=== PATIENT | female | born 1930 | race Caucasian/White ===

== ENCOUNTER 2017-09-04 19:08 | Inpatient (IN) | payer MEDICARE, BC, MEDICAID ==
[~2017-09-04] VITALS: Ht 152.4 cm; Wt 44.0 kg
--- NOTE | ~2017-09-04 | PROC ---
[address] [address] PROCEDURE REPORT Name: MARCELINO TIPTON Room: [address] IN ..#: [id number] Admission: 09/04/17 Attend Phys: Ana York Discharge: Date of : 34 Report #: [id number] THIS REPORT FOR: //name// For GI report, please see the Provation report in Perceptive 7 content. By: [facility]3Medical Records Staff [facility] /RAMY
[~2017-09-04 19:08] MED LIST: ACETAMINOPHEN-1 EAC1 PO; ACIDOPHILUS1 EAC4 PO; ALL DAY ALLERGY10 M3 PO; ALL DAY ALLERGY10 MG PO; ANTI-ITCH28.4 GM TP; ARTIFICIAL TEA1 EACH OP; ASPIR 8181 MG PO; ATIVAN0.5 MG PO; AZITHROMYCIN 2250 MG PO; BUSPIRONE HCL10 MG PO; CAL-GEST200 MG PO; CALCIUM 600 +1 EA10 PO; CALCIUM 600 +1 EAC1 PO; CALCIUM500 M1 PO; CARAFATE 11 GM/10 M1 PO; CEPASTAT CHERR18 TA2 PO; COLACE100 MG PO; CRANBERRY450 M1 PO; GABAPENTIN 100100 MG PO; HYDROXYZINE HCL25 M1 PO; IBUPROFEN 400400 M2 PO; LEXAPRO 10 MG T10 M1 PO; LIPITOR10 MG PO; LISINOPRIL2.5 MG PO; LOPERAMIDE 2 MG2 M1 PO; LOPERAMIDE2 MG PO; MACROBID 100 M100 M1 PO; MACROBID 100 M100 M2 PO; MIRALAX17 GM PO; MIRALAX255 GM PO; MULTIVITAMINS1 EAC7 PO; OMEPRAZOLE40 MG PO; PANTOPRAZOLE SO40 M1 PO; PATANOL5 ML OPHTHALMIC; PEPCID20 MG PO; PHENERGAN 25 MG25 M1 PO; PRAVACHOL20 MG PO; PREDNISONE 5 MG5 MG PO; PROBIOTIC1 EAC1 PO; REMERON15 M1 PO; REMERON15 MG PO; ROBITUSSIN100 MG/53 PO; THERAGRAN-M PR1 EAC1 PO; TRANSDERM-SCO1 PATC1 TRANSDERM; TYLENOL325 MG PO; ULTRAM 50MG TAB50 MG PO; VALACYCLOVIR1000 MG PO; VENTOLIN HFA 1818 GM INH; VISTARIL 25 MG25 M1 PO; VOLTAREN GEL 1100 G1 TOP; VOLTAREN GEL 1100 G2 TOP; [UNRECOGNIZED DRUG - OTHER] TP
[2017-09-04 19:10] VITALS: BP 210/111
--- NOTE | 2017-09-04 19:22 | NUR ---
pt's purse and glasses by her side. pt has asked numerous times for her purse. i have set it in her hands and still she asks for it.
[2017-09-04] MEDS ORDERED: CELEXA10 MG PO (19:39)
[2017-09-04] MEDS ORDERED: ATIVAN0.5 MG PO (19:40)
[2017-09-04] MEDS ORDERED: ANTIFUNGAL TOP (19:41)
[2017-09-04 19:55] LABS: ABSOLUTE EOSINOPHILS 0.1 thou/uL (0.0-0.7); ABSOLUTE LYMPHOCYTES 1.6 thou/uL (0.8-5.3); ABSOLUTE MONOCYTES 0.6 thou/uL (0.0-1.2); ABSOLUTE NEUTROPHILS 10.7 thou/uL (1.6-8.1); BASOPHILS 0.3 %; EOSINOPHILS 0.9 %; HEMOGLOBIN 12.2 gm/dL (12.0-15.0); MCH 29.8 pg (26.0-34.0); MCHC 32.9 g/dL (28.0-37.0); MCV 90.8 fL (80.0-100.0); MONOCYTES 4.6 %; MPV 7.2 fl. (7.2-11.1); NUCLEATED RBCS 0 /100WBC; PLATELET COUNT* 371 thou/uL (150-400); POLYS 82.2 %; RBC 4.07 mil/uL (4.20-5.00); RDW-CV 13.2 % (10.5-14.5)
[2017-09-04 20:13] LABS: ANION GAP 9 mmol/L (7-16); BUN 22 mg/dL (7-18); CALCIUM 9.4 mg/dL (8.5-10.1); CHLORIDE 104 mmol/L (98-107); CO2 27 mmol/L (21-32); GLUCOSE 107 mg/dL (70-99); POTASSIUM 3.9 mmol/L (3.5-5.1); SODIUM 140 mmol/L (136-145)
[2017-09-04 20:21] LABS: ALBUMIN 3.4 g/dL (3.4-5.0); ALKALINE PHOSPHATASE 98 U/L (46-116); LIPASE 196 U/L (73-393); SGOT 19 U/L (15-37); SGPT 20 U/L (30-65); TOTAL BILIRUBIN 0.6 mg/dL (<0.1-1.0); TOTAL PROTEIN 7.2 g/dL (6.4-8.2); TROPONIN-I LEVEL <0.06 ng/mL (<0.06)
[2017-09-04 20:24] LABS: URINE BILIRUBIN NEGATIVE (Negative); URINE BLOOD TRACE (Negative); URINE CLARITY CLEAR; URINE COLOR YELLOW; URINE GLUCOSE-RANDOM NEGATIVE (Negative); URINE KETONES NEGATIVE (Negative); URINE LEUKOCYTES-REFLEX 1+ (Negative); URINE NITRITE-REFLEX NEGATIVE (Negative); URINE PROTEIN NEGATIVE (Negative); URINE UROBILINOGEN 0.2 E.U./dl (0.2-1.0)
[2017-09-04 20:50] LABS: CASTS None Seen /LPF (None Seen); CRYSTALS None Seen /LPF (None Seen); MUCUS None Seen strn/LPF (None Seen); SQUAMOUS 4-10 Moderate /LPF (0-3); URINE WBC-REFLEX >25 Many /HPF (0-5)
[2017-09-04 20:51] LABS: BACTERIA-REFLEX 1-9 Few /HPF (None Seen); URINE RBC 0-2 Rare /HPF (0-2); WBC CLUMPS Few (None Seen)
[2017-09-04] MEDS ORDERED: NORCO 5-325 TA1 EACH PO (21:12)
--- NOTE | 2017-09-04 21:38 | NUR ---
TALKED WITH ARUNA EPPS AT [facility] AND INFORMED HER THAT PT WILL BE RETURNING AND THAT THEY WILL NEED TO CALL DR TEIXEIRA'S OFFICE TOMORROW TO SCHEDULE PROCEDURE FOR SUNDAY. SHE IS GOING TO CALL PT'S DAUGHTER.
--- NOTE | 2017-09-04 22:49 | NUR ---
TRANSFER CANCELLED. PT TO BE ADMITTED. PT UNABLE TO STAND WITH ASSISSTANCE. SUPRIYA AT [facility] NOTIFIED. PT'S DAUGHTER NEVER RETURNED CALLS AT THIS TIME
[2017-09-04 23:23] VITALS: BP 154/67
[2017-09-04 23:30] VITALS: BP 152/58
--- NOTE | 2017-09-05 01:39 | NUR ---
ASSUMED CARE OF PT AT 2330. PT IS ALERT AND ORIENTED. VSS. PERRLA. NO COMPLAINTS OF PAIN. PT IS IN SINUS TACHYCARDIA ON THE TELEMETRY. PT IS RESTING COMFORTABLY IN BED. RESPIRATIONS ARE EVEN AND NONLABORED. WILL CONTINUE TO MONITOR PT.
[2017-09-05 08:17] LABS: ABSOLUTE BASOPHILS 0.1 thou/uL (0.0-0.2); ABSOLUTE LYMPHOCYTES 1.1 thou/uL (0.8-5.3); ABSOLUTE MONOCYTES 0.5 thou/uL (0.0-1.2); ABSOLUTE NEUTROPHILS 7.6 thou/uL (1.6-8.1); EOSINOPHILS 0.5 %; HEMATOCRIT 35.2 % (37.0-47.0); HEMOGLOBIN 11.8 gm/dL (12.0-15.0); LYMPHOCYTES 11.5 %; MCH 30.3 pg (26.0-34.0); MCHC 33.5 g/dL (28.0-37.0); MCV 90.3 fL (80.0-100.0); MONOCYTES 5.6 %; MPV 7.5 fl. (7.2-11.1); NUCLEATED RBCS 0 /100WBC; PLATELET COUNT* 362 thou/uL (150-400); POLYS 81.4 %; RDW-CV 13.1 % (10.5-14.5); WBC 9.4 thou/uL (4.0-11.0)
[2017-09-05 08:25] LABS: CALCIUM 8.1 mg/dL (8.5-10.1); CREATININE 0.9 mg/dL (0.6-1.3); POTASSIUM 3.7 mmol/L (3.5-5.1)
[2017-09-05 08:30] VITALS: BP 172/84
[2017-09-05 08:36] LABS: ALBUMIN 2.9 g/dL (3.4-5.0); MAGNESIUM 1.3 mg/dL (1.8-2.4); TOTAL BILIRUBIN 0.7 mg/dL (<0.1-1.0); TOTAL PROTEIN 6.6 g/dL (6.4-8.2)
[2017-09-05] MEDS ORDERED: ULTRAM 50MG TAB50 MG PO (10:33)
[2017-09-05] MEDS ORDERED: PROTONIX40 M1 PO (10:34)
[2017-09-05] MEDS ORDERED: VOLTAREN GEL 1100 G2 TOP (10:35)
[2017-09-05] MEDS ORDERED: REFRESH CELLUVI1 APP OPHTHALMIC (10:36)
[2017-09-05] MEDS ORDERED: NYAMYC15 GM TOP (10:37)
[2017-09-05] MEDS ORDERED: COMPOUND TOP (10:39)
--- NOTE | 2017-09-05 11:00 | NUR ---
TEXT PAGED DR. SPICER TO INQUIRE ABOUT EGD PROCEDURE SCHEDULED FOR SUNDAY. DR. SPICER STATES THAT HE IS TREATING PT FOR UTI. GI NOT CONSULTED AT THIS TIME. CONTACTED GI OFFICE TO VERIFY IF PT HAD SCHEDULED OUTPATIENT EGD D/T RECEIVING THIS INFORMATION IN NURSING REPORT THIS A.M. GI OFFICE STAFF STATE PT DOES NOT HAVE A PROCEDURE SCHEDULED OUTPATIENT BUT THAT SHE HAD AN EGD IN JUNE AND NO INDICATION OF A REPEAT STUDY IN PHYSICIAN NOTES.
[2017-09-05 12:13] VITALS: BP 157/71
--- NOTE | 2017-09-05 14:29 | NUR ---
WOUND CARE NOTE: CONSULT RECEIVED FOR PRESSURE ULCER TO BOTTOM. PATIENT PRESENTS WITH A HEALING STAGE 2 OR 3 PRESSURE ULCER TO HER SACRAL AREA. SMALL OPENING APPROXIMATELY 0.2X0.2X0.2 WITH A MOIST, RED WOUND BED. SHAKEEL-WOUND WITH NEW EPITHELIUM AND SHAKEEL-WOUND CALLOUS. RECOMMEND TURN Q2 HOURS, [id number] BARRIER OINTMENT BID AND PRN. LIMIT LAYERS OF LINEN UNDER PATIENT LIMIT HOB <30 DEGREES
[2017-09-05 15:44] VITALS: BP 160/89
--- NOTE | 2017-09-05 15:56 | NUR ---
CM ASSESSEMENT: Pt is confused, asking the same questions over and over. CM left for Pt's dtr. CM spoke with Valentina at [facility] and confirmed that Pt is a LTC resident there and that she can return. Pt is w[place] bound, staff assist with ADLs. Waiting for dtr to call back to confirm return to [facility] at mt. Following.
--- NOTE | 2017-09-05 16:00 | NUR ---
PT CALLS OUT CONTINUOUSLY FOR HELP. NURSING STAFF ASSISTS TO BSC, PT DOES NOT ALWAYS NEED TO VOID. PT HAS HAD ADEQUATE OUTPUT WITH SOME INCONTINENT EPISODES AND SOME ABILITY TO VOID IN BSC. PRN MEDICATION GIVEN FOR ANXIETY PT FACIAL EXPRESSION IS WORRIED AND STATES SHE DOES NOT KNOW IF HER CHILDREN ARE OK. INSISTS ON CALLING THEM. REACHED SON WHO VISITED WITH PT. PT APPEARED RELIEVED BUT CONTINUED TO EXPRESS ANXIETY. THERAPEUTIC COMMUNICATION TECHNIQUE: LISTENING, PRESENCE.
--- NOTE | 2017-09-05 16:17 | EKG ---
[place] [address] ELECTROCARDIOGRAM REPORT Name: MARCELINO TIPTON Room: [address] IN [facility]#: [id number] Admission: 09/04/17 Attend Phys: Ana York Discharge: Date of : 34 Report #: [id number] THIS REPORT FOR: //name// [facility] ED Test Date: 2017-09-04 Test Time: 20:03:08 Pat Name: MARCELINO TIPTON Department: Room: [facility] Gender: F Group Director: MICHAEL : [id number] Requested By: Laura Gandara Order Number: [id number] MD: Carroll Manuel Measurements Intervals [place] Rate: 103 P: 75 WA: 171 QRS: -37 QRSD: 122 T: 47 QT: 367 QTc: 481 Interpretive Statements Sinus tachycardia Ventricular premature complex Right bundle branch block Left ventricular hypertrophy Compared to ECG 05/07/2017 18:26:41 Ventricular premature complex(es) now present Left ventricular hypertrophy now present ST (T wave) deviation now present Electronically Signed On 09-05-2017 16:17:21 ACID OPERATOR by Carroll Manuel [email or web address] <ELECTRONICALLY SIGNED> By: Carroll Manuel MD, FAC 09/05/17 1617 02 02 Carroll Manuel MD, FAC /EPI
[2017-09-05 20:00] VITALS: BP 136/56
[2017-09-06] VITALS: BP 124/73
[2017-09-06 04:00] VITALS: BP 142/61
--- NOTE | 2017-09-06 04:38 | NUR ---
PT ALERT ORIENTED TO SELF AND PLACE. MAKING RANDOM STATEMENTS ABOUT THINGS THAT DON'T PERTAIN TO CARE AT PRESENT. PT LAYS IN POSITION. LEGS AND ARMS ARE ABLE TO STRAIGHTEN OUT. ATIVAN AND ATAREX GIVEN FOR ANXIETY. TELEMETRY SHOWS SR. PT INCONT OF URINE. NPO AFTER MN. WILL CONTINUE TO MONITOR.
--- NOTE | 2017-09-06 05:07 | NUR ---
YESTERDAYS MAG LEVEL 1.3. MAG IVPB BOLUS STARTED.
[2017-09-06 05:26] LABS: HEMATOCRIT 32.1 % (37.0-47.0); HEMOGLOBIN 10.9 gm/dL (12.0-15.0); MCH 30.8 pg (26.0-34.0); MCHC 33.9 g/dL (28.0-37.0); MCV 90.9 fL (80.0-100.0); MPV 7.7 fl. (7.2-11.1); RBC 3.53 mil/uL (4.20-5.00); RDW-CV 13.5 % (10.5-14.5); WBC 8.7 thou/uL (4.0-11.0)
[2017-09-06 05:43] LABS: CALCIUM 8.2 mg/dL (8.5-10.1); CREATININE 0.9 mg/dL (0.6-1.3); MAGNESIUM 1.7 mg/dL (1.8-2.4); POTASSIUM 3.4 mmol/L (3.5-5.1)
[2017-09-06 08:15] VITALS: BP 126/68
--- NOTE | 2017-09-06 10:00 | NUR ---
PT CALLING OUT FOR NURSE MULTIPLE TIMES. NEEDS REASSURANCE ABOUT LOCATION OF HER PERSONAL ITEMS REPEATEDLY. ANXIETY MED GIVEN PER SEP. ASSESSMENT COMPLETE. VS WNL. ST ON BLENDER MACHINE OPERATOR. BED ALARM IN PLACE. BARRIER CREAM APPLIED TO REDDENED COCCYGEAL SKIN AFTER EACH INCONTINENCE EPISODE. NPO FOR POSSIBLE ENDOSCOPY. GI LATHE PULLER CONTACTED PER DR. SPICER TO CLARIFY WHETHER OR NOT PT WILL HAVE GI PROCEDURE TODAY. CONSULT TO BE BEDSIDE THIS A.M.
[2017-09-06 11:54] VITALS: BP 137/66
--- NOTE | 2017-09-06 16:00 | NUR ---
PT CALLING OUT MULTIPLE TIMES TO REQUEST STAFF LOCATE HER PERSONAL ITEMS. PRN LORAZEPAM GIVEN PER MAR. REASSESSMENT FINDS THAT PT CONTINUES TO DISPLAY SYMPTOMS OF ANXIETY. PRN HYDROXAZINE GIVEN PER MAR. PROVIDED REASSURANCE, DISTRACTION, PRAYER AND IMAGERY. LATER PATIENT CONFIDES THAT SHE BELIEVES THAT EVERYONE DISLIKES HER D/T HER SYMPTOMS OF ANXIETY, ESPECIALLY HER CHILDREN. SHE STATES THAT HER DAUGHTER CLARENCE PUT HER IN SYL-PSYCH WHEN SHE FIRST MOV[place] TO [place] 3-4 YEARS AGO. PT STATES THAT SHE WANTS TO FIND A MEDICINE THAT WILL RELIEVE HER ANXIOUSNESS. LATER PT ASKS WHERE SHE SLEPT LAST NIGHT, STATING SHE REALLY CANT REMEMBER. NEEDED ITEMS AND CALL LIGHT IN REACH.
--- NOTE | 2017-09-07 04:10 | NUR ---
PT ALERT ORIENTED TO SELF AND PLACE. PT CHANGED TO MEDSURG STATUS. O2 AT 2 LITERS NC. LORAZEPAM AND HYDROXYZINE GIVEN FOR ANXIETY AT HS. INCONT OF URINE. TURN Q 2 HRS. WILL CONTINUE TO MONITOR.
[2017-09-07 07:55] VITALS: BP 134/66
[2017-09-07 10:45] VITALS: BP 134/66
--- NOTE | 2017-09-07 11:05 | NUR ---
ASSUMED CARE OF PT AT 0730. PT VITALS ARE STABLE. LUNGS CLEAR AND DIMINISHED. PT C/O GENERALIZED ABDOMEN PAIN, NO MEDICATION GIVEN AT THIS TIME BUT SHAKEEL-CARE AND REPOSITIONING WERE GIVEN. PT APPEARS ANXIOUS, CALLING OUT FREQUENTLY ASKING FOR MISCELLANEOUS ITEMS AND DAUGHTER.PT WAS EDUCATED ON RELAXATION TECHNIQUES AND SCHEDULED EGD. NPO STATUS MAINTAINED FOR TESTING. PT GOALS AND CONCERNS WERE DISCUSSED. FALL PRECAUTIONS ARE IN PLACE, CALL LIGHT AND PERSONAL BELONGINGS WITHIN REACH. DAUGHTER CLARENCE WAS CALLED FROM PATIENT ROOM BY NURSE STAUFFER, WITH NO CONTACT ESTABLISHED AT THAT TIME PER PT REQUEST. DAUGHTER RETURNED CALL AND STATED TO HAVE THE NURSE CALL IF NEED ANYTHING. DPOA, SON MARIANA WAS CONTACTED BY NURSE STAUFFER AND KAR TO OBTAIN VERBAL CONSENT FOR PT EGD.
[2017-09-07 12:11] VITALS: BP 164/98
--- NOTE | 2017-09-07 12:31 | NUR ---
[facility] is able to accept Pt at dc, if dc this weekend. p:[phone] f:[phone]
--- NOTE | 2017-09-07 15:40 | NUR ---
CONSULTED TO PLACE MIDLINE. RIGHT UPPER ARM ASSESSED. PT VERY UNCOOPERATIVE. KEPT SITTING UP IN BED AND UNABLE TO HOLD ARM STILL. VEINS IDENTIFIED BUT NOTED TO BE SMALL. IFEOMA DELGADILLO RN IN ROOM TO ASSIST IN DISTRATION AND CALMING PT. AFTER SEVERAL STICKS UNABLE TO PLACE MIDLINE. PRIMARY NURSING NOTIFIED.
--- NOTE | 2017-09-07 16:04 | NUR ---
RESUMED CARE OF PT AT 1515. PT VITALS ARE STABLE. PT RECIEVED MORNING MEDICATIONS. DR. VAZQUEZ CONTACTED ABOUT UNSUCCESSFUL MIDLINE. SCHEDULE FOR A MORNING UA AND CONTINUE PERIPHERAL IV ANTIBIOTICS INSTEAD.
--- NOTE | 2017-09-07 18:57 | NUR ---
PT HAS BEEN ANXIOUS AND CALLED OUT FREQUENTLY THROUGHOUT SHIFT. PT RECIEVED PRN ATIVAN FOR ANXIETY. PT HAS HAD A DAUGHTER VISIT AND IS NOW RESTING QUIETLY WITH PERSONAL BELONGINGS AND CALL LIGHT IN PLACE. PT HAS BEEN INCONT DURING SHIFT BUT CALLS AFTERWARDS TO LET US KNOW. FALL PRECAUTIONS IN PLACE. ORDER FOR UA IN AM AND POSSIBLE DISCHARGE.
[2017-09-07 20:00] VITALS: BP 157/85
--- NOTE | 2017-09-08 04:31 | NUR ---
ASSUMED PT CARE AT 1930, PT IS A&OX4, BUT HAS EPISODES OF CONFUSION. PT IS ON ISOLATION FOR MRSA. PT IS MED SURG STATUS, CALLS OUT FREQUENTLY. TO "TALK WITH NURSE" PT STATES SHE IS "DEPRESSED" AND WANTS SOMEONE TO VISIT WITH. PT IS ON A FULL LIQUID DIET, TOLERATING IT WELL. PT IS ON RA, SATTING MID TO HIGH 90'S. PT REQUESTED PRN ATIVAN THROUGHOUT THR NIGHT. BED IN LOW POSTIION, CALL LIGHT IN REACH, BED ALARM ON,YELLOW ARM BAND AND SOCKS IN PLACE. HOURLY ROUNDING COMPLETED FOR PT SAFETY. PT REFUSED SOME OF HER EVENIGN MEDICATIONS.
[2017-09-08 05:42] VITALS: BP 104/54
[2017-09-08 08:00] VITALS: BP 158/72
[2017-09-08 14:13] VITALS: BP 172/80
[2017-09-08 16:00] VITALS: BP 166/82
--- NOTE | 2017-09-08 16:01 | NUR ---
ASSUMED PT CARE AT 0700 PT IS ALERT AN ORIENTED X 4 PT USES CALL LIGHT INAPPROPRIATELY AND IS CONSANTLY CALLING OUT AFTER NEEDS ARE MET, PT DENIES PAIN PT C/O SOA PUT O2 ON PT AND SATS ARE ABOVE 90, PT TOLERATES HER LIQUID DIET PT IS Q 2 TURNS PT IS A FALL RISK BED ALARM IS ON, PT IV CAME OUT NEW IV PUT IN RIGHT HAND, TALKED WITH PHARMACY WHO STATED PT VANCYO LEVEL IS LOW AN THAT THEY WILL REDOSE AND GIVE AROUND 1330, PT IS ANXIOUS ANXIETY MEDS GIVEN, WILL CONTINUE TO MONITOR
[2017-09-08 19:50] VITALS: BP 123/67
[2017-09-09 04:14] VITALS: BP 93/44
--- NOTE | 2017-09-09 05:35 | NUR ---
END SHIFT: PT RESTED WELL. NO COMPLAINTS. INCONT. REMAINS ON 2L NC TOLERATING WELL. NO C/O NAUSEA. MEDICATION FOR PAIN GIVEN WITH GOOD RELIEF. ASSESSMENT UNCHANGED. VSS. CALL LIGHT IN REACH. SAFETY PRECAUTIONS IN PLACE. PERFORMED HOURLY ROUNDING. WILL CONT TO MONITOR.
[2017-09-09 08:00] VITALS: BP 118/60
[2017-09-09 12:34] VITALS: BP 106/63
--- NOTE | 2017-09-09 14:58 | NUR ---
ASSUMED PT CARE AT 0700 PT IS ALERT AND ORIENTED X 4 PT CALLS OUT INAPPROPRIATELY AND FREQUENTLY, PT IS ANXIOUS PT GIVEN ATIVAN, PT IS TURNED Q 2 HOURS PT IS INCONTIENT BARRIER CREAM APPLIED TO BUTTOCK, PT IS A FALL RISK BED ALARM ON. PT IS MEDICAL SURGICAL STATUS, PT VSS, PT IS ON 2L/NC PT DENIES PAIN OR SOA, PT IS GETTING VANCYO, PT GETS FIXATED ON CERTAIN PEOPLE AND EVENTS AND BECOMES ANXIOUS PT ASKS INAPPROPRIATE QUESTIONS AND PT CALLS OUT STATING SHE CAN'T FEED SELF WHEN NO ONE IS IN THE ROOM THIS NURSE HAS VISUALLY SEEN PT FEED SELF, WILL CONTINUE TO MONITOR
[2017-09-09 16:46] VITALS: BP 134/59
[2017-09-09 19:50] VITALS: BP 94/55
[2017-09-10] VITALS: BP 128/61
--- NOTE | 2017-09-10 04:27 | NUR ---
END SHIFT: PT WAS ANXIOUS AT BEGINING OF SHIFT AND WITH C/O HARDING RELIEVED BY MEDICATION. PT RESTED WELL AFTERWARDS. REMAINS ON 2L- TOLERATING. PT HAS BEEN OLIGURIC OVER THIS SHIFT. PT REPORTED FEELING BLOATED AND UNCOMFORATABLE FROM NOT HAVING A BM IN "MULTIPLE DAYS"- MEDICATION GIVEN WITH NO RESULT. VSS. SAFETY PRECAUTIONS IN PLACE. CALL LIGHT IN REACH. PERFORMED HOURLY ROUNDING. WILL CONT TO MONITOR.
[2017-09-10 07:23] LABS: INFLUENZA A ANTIGEN None Detected (None Detect); INFLUENZA B ANTIGEN None Detected (None Detect)
--- NOTE | 2017-09-10 07:41 | CON ---
[address] [address] CONSULTATION Name: MARCELINO TIPTON Room: [address] IN .R.#: [id number] Admission: 09/04/17 Attend Phys: Ana York Discharge: Date of : 32 Report #: [id number] THIS REPORT FOR: //name// CC: Garfield Mckee DATE OF SERVICE: 09/07/2017 INFECTIOUS DISEASE CONSULTATION ATTENDING PHYSICIAN: Dr. Kraft REASON FOR EVALUATION: Complicated urinary tract infection, need for parenteral outpatient antibiotic therapy due to resistant organisms, drug-drug interactions and hypersensitivity. HISTORY OF PRESENT ILLNESS: Chart reviewed, patient examined. 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 She is quite anxious at this point. She was admitted with nausea, emesis on the and some encephalopathy as well, has been going on for about 3 days. Evaluation including urinalysis, which showed marked pyuria. Urine culture now with growth of oxacillin-resistant Staph aureus as well as Enterococcus. Some degree of improvement. She is afebrile at this point. Does still have some persistent abdominal-related discomfort. She has been on empirically and continued on initially ceftriaxone switched to vancomycin. ALLERGIES: SULFA, CIPRO, AZITHROMYCIN, AMOXICILLIN, PAROXETINE, PROMETHAZINE AND DULOXETINE. MEDICATIONS: Include now the vancomycin, mirtazapine, p.r.n. analgesics, antiemetics, citalopram, diclofenac, lisinopril and pantoprazole. PAST MEDICAL HISTORY: As described above. Rheumatoid arthritis, some renal insufficiency, agitation, history of syncope, neuropathy, depression and hypertension. SOCIAL HISTORY: Nonsmoker. No ethanol. FAMILY HISTORY: Noncontributory. REVIEW OF SYSTEMS: She admits to abdominal related discomfort and some breathing difficulties. She is almost paranoid. PHYSICAL EXAMINATION: GENERAL: She appears chronically ill [place] [address] CONSULTATION Name: MARCELINO TIPTON Room: [address] IN [facility]#: [id number] Admission: 09/04/17 Attend Phys: Ana York Discharge: Date of : 32 Report #: [id number] VITAL SIGNS: Temperature 98, pulse 99, respirations 17 and blood pressure 134/66. SKIN: Warm and dry. No rashes. HEENT: Otherwise unremarkable. NECK: Supple. LUNGS: Few scattered coarse breath sounds. HEART: Regular. ABDOMEN: Soft. There are no peritoneal signs. GENITOURINARY: Deferred. RECTAL: Deferred. LABORATORY: Blood cultures are sterile thus far. Lactic acid 0.8. Urine cultures as described above with multiple growth including MRSA and Enterococcus, although in small numbers. Electrolytes: Sodium 143, potassium 3.4, chloride 108 and bicarb is 25. BUN and creatinine of 13 and 0.9. Anion gap of 10. Glucose of 90. Estimated GFR of 60. CBC: White count of 8.7, H and H of 10.9 and 32.1 and platelets of 305. CT abdomen and pelvis: Periampullary diverticulum and distal common bile duct, unchanged from exam, 04/2016. No acute abdominal process. Chest x-ray on admission showed no acute process. ASSESSMENT: Complicated urinary tract infection. The patient has multiple drug hypersensitivities in particular to antibiotics, also is taking medicines that would potentially have significant adverse drug-drug interactions with her antidepressants, etc and utilizing something like linezolid ____ continue vancomycin. We will go and try to get a midline in place. Treat for additional period of perhaps 7-10 days total, and now she is scheduled to undergo EGD this afternoon. I would expect her to be here in another 1-2 days. <ELECTRONICALLY SIGNED> By: Jace Dover MD 09/10/17 0741 1143 [id number] Dover MD /nt
[2017-09-10 08:19] VITALS: BP 147/72
--- NOTE | 2017-09-10 11:13 | NUR ---
ASSUMED CARE OF PATIENT AFTER TRANSFER FROM [facility]. THIS NURSE RECEIVED NO REPORT OR WRITTEN SBAR ON THIS PATIENT. ORIENTED PATIENT TO ROOM, CALL LIGHT PLACE IN REACH. PATIENT HAS CALLED OUT REPEATEDLY SINCE ARRIVING TO THE UNIT. PATIENT IS ALERT AND ORIENTED TO PERSON AND PLACE BUT IS VERY CONFUSED. PATIENT ASKS THE SAME QUESTIONS OVER AND OVER EACH TIME WE ENTER THE ROOM. REASSURED PATIENT THAT THE DOCTOR WILL SEE HER SOON AND WE ARE JUST A CALL AWAY. CALL LIGHT IS WITHIN REACH. NURSINF WILL CONTINUE TO MONITOR FREQUENTLY.
--- NOTE | 2017-09-10 11:37 | NUR ---
NOTIFIED SNEHAL/[facility] THAT PT.CAN RETURN TO HER LTC BED TODAY. SHE IS HAVING A TICC LINE PLACED AND WILL HAVE IV VANOCMYCIN FOR HER UTI. PT.IN CONTACT ISOLATION. CM TO CONTACT SNEHAL AFTER TIME OF TICC LINE DETERMINED.
[2017-09-10 12:29] LABS: URINE BILIRUBIN NEGATIVE (Negative); URINE BLOOD NEGATIVE (Negative); URINE CLARITY SL CLOUDY; URINE COLOR DARK YELLOW; URINE GLUCOSE-RANDOM NEGATIVE (Negative); URINE KETONES NEGATIVE (Negative); URINE LEUKOCYTES NEGATIVE (Negative); URINE NITRITE NEGATIVE (Negative); URINE PROTEIN TRACE (Negative); URINE SPECIFIC GRAVITY >= 1.030 (1.005-1.030); URINE UROBILINOGEN 0.2 E.U./dl (0.2-1.0)
[2017-09-10 12:39] LABS: BACTERIA 1-9 Few /HPF (None Seen); SQUAMOUS 0-3 Few /LPF (0-3); URINE RBC 0-2 Rare /HPF (0-2); URINE WBC 0-5 Rare /HPF (0-5)
[2017-09-10 12:40] LABS: AMORPHOUS URATES Moderate /LPF (None Seen); CASTS None Seen /LPF (None Seen); MUCUS 0-3 Light strn/LPF (None Seen)
--- NOTE | 2017-09-10 14:03 | NUR ---
PT.TO STAY 24 HRS TO RECEIVE IV VANCO HERE. WILL NOT NEED TICC LINE AND CAN BE DISCHARGED TO [facility] TOMORROW PER . CM NOTIFIED SNE[facility].
[2017-09-10 16:00] VITALS: BP 145/70
--- NOTE | 2017-09-10 17:11 | NUR ---
PATIENT REMAINS ALERT AND ORIENTED X4. VSS ON 2 LITERS 02. PATIENT CALLS OUT VERY FREQUENTLY AND IMPULSIVELY. PATIENT EXHIBITS BEHAVIOR OF CONFUSION BUT IS ORIENTED TO PERSON, DATE OF , LOCATION, CURRENT DATE. PATIENT HAS HAD NO COMPLAINTS OF PAIN OR NAUSEA THIS SHIFT. HORLY ROUNDS HAVE BEEN MAINTAINED. CALL LIGHT IS WITHIN REACH...AND USED FREQUENTLY. NURSING WILL CONTINUE TO MONITOR.
[2017-09-11 00:49] VITALS: BP 104/49
--- NOTE | 2017-09-11 04:32 | NUR ---
PATIENT HAS SLEPT WELL THROUGHOUT THE NIGHT WITHOUT ANY ISSUES. VSS ON 2L 02 VIA NASAL CANNULA. REMAINS ON CONTACT ISOLATION. MEDICATIONS GIVEN ORDERED AND CHARTED. NO C/O PAIN. PATIENT INCONTINENT OF BOWEL AND BLADDER. PATIENT INSTRUCTED TO USE CALL LIGHT WHEN NEEDING ASSISTANCE. HOURLY ROUNDS MADE. FALL PRECAUTIONS IN PLACE. WILL CONTINUE WITH PLAN OF CARE AND NURSING TO MONITOR.
[2017-09-11 07:52] VITALS: BP 118/61
[2017-09-11 09:51] VITALS: BP 118/61
[2017-09-11] MEDS ORDERED: ZYVOX600 MG PO (10:05)
--- NOTE | 2017-09-11 12:14 | NUR ---
PT.TO BE DISCHARGED TODAY TO GO BACK TO HER LTC BED AT [facility]. NOTIFIED LINDSEY/[facility] AND FAXED HER H&P AND DISCHARGE SUMMARY. LINDSEY ARRANGED WC VAN FOR 13OO. PT.HAS O2. ARUNA STAUFFER SAID SHE HAS SPOKEN WITH DAUGHTER ON PHONE AND SHE IS AWARE OF TIME OF PICKUP. CHART COPIED TO GO WITH PT.AND EH WILL CALL REPORT.
--- NOTE | 2017-09-11 13:54 | NUR ---
PT DISCHARGE TO [facility]. ATTEMPTED TO CALL REPORT TO ACCEPTING NURSE, NO ANSWER AT FACILITY. PT REPORTED NAUSEA, GIVEN NAUSEA MED ORDERED. PT DID EAT ABOUT 50% OF MEALS. INFORMATION PACKET SENT WITH PATIENT.
--- NOTE | 2017-09-27 14:50 | CON ---
[address] [address] CONSULTATION Name: MARCELINO TIPTON Room: [address] IN ..#: [id number] Admission: 09/04/17 Attend Phys: Ana York Discharge: 09/11/17 Date of : 32 Report #: [id number] THIS REPORT FOR: //name// CC: Logan Mckee DICTATED BY: Munira Gray [facility] DATE OF SERVICE: 09/06/2017 Please note at the time of this dictation, the patient was seen and physically examined by myself. REASON FOR CONSULTATION: Dysphagia. HISTORY OF PRESENT ILLNESS: This is an 87-year-old female who presented to the emergency room with intractable abdominal pain and difficulty swallowing. She points to her epigastric area and says that it hurts; however, on discussions with other individual, she does not complain of that. 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 She did have a followup visit in July 2017, with myself. She still was complaining of some choking sensation about 2-3 times a week and that she occasionally have something would get stuck particularly a pill, she might have some vomiting noted. She denies any bright red blood or any coffee ground emesis at that time. At the time when the patient was seen in the office, she mentioned multiple times that she just wanted to . ALLERGIES: SULFA, CIPROFLOXACIN, ZITHROMAX, AMOXICILLIN, CYMBALTA, PAXIL and PHENERGAN. MEDICATIONS FROM HOME: Include tramadol, Voltaren, pantoprazole, MiraLax, , Ventolin, Merrill-Gest, All Day Allergy, Neurontin, Celexa, Ativan, aspirin, lorazepam, cranberry, Tylenol, Phenergan, throat lozenges, hydroxyzine, Colace, Zestril, loperamide, , Remeron and Caltrate. PAST MEDICAL HISTORY: Includes sliding hiatal hernia, rheumatoid arthritis, acute renal failure, agitated, history of Schatzki ring, pneumonia, shingles, syncope, neuropathy, depression, hypertension, benzo-seeking behavior, and anxiety. PAST SURGICAL HISTORY: Noncontributory. FAMILY HISTORY: [place] [address] CONSULTATION Name: MARCELINO TIPTON Room: [address]#: [id number] Admission: 09/04/17 Attend Phys: Ana York Discharge: 09/11/17 Date of : 32 Report #: [id number] SOCIAL HISTORY: The patient is a resident at [facility]. No alcohol, tobacco, or illegal drug use noted. REVIEW OF SYSTEMS: Twelve-point review of systems is essentially negative except what is mentioned in the HPI. PHYSICAL EXAMINATION: VITAL SIGNS: Temperature 36.7, pulse 80, respirations 19, and blood pressure 142/61. HEART: Regular rate and rhythm. LUNGS: Clear, slightly diminished. ABDOMEN: Soft, positive bowel sounds in all 4 quadrants with no masses or tenderness noted. LABS: Hemoglobin is 10.9, white count is 8.7, and platelet is 305. Sodium 143, potassium 3.4, chloride 108, CO2 of 25, BUN is 13, creatinine 0.9, GFR is 60. She is noted to have a UTI at this time. IMPRESSION: 1. Dysphagia. 2. History of Schatzki ring dilated back in June 2017. 3. Urinary tract infection. PLAN: 1. EGD tomorrow with Dr. Mcdonald. 2. We will hold her Lovenox and aspirin today. 3. Diet as tolerated. 4. Further recommendations to be made once the procedure has been performed. Thank you for allowing us to participate in this patient's care. Please do not hesitate to call with any questions in regard to this consult. <ELECTRONICALLY SIGNED> By: Katelyn Mcdonald MD 09/27/17 1450 1144 [id number] Mcdonald MD /nt
--- NOTE | 2017-09-27 14:50 | CON ---
[address] [address] CONSULTATION Name: MARCELINO TIPTON Room: [address] IN .R.#: [id number] Admission: 09/04/17 Attend Phys: Ana York Discharge: 09/11/17 Date of : 32 Report #: [id number] THIS REPORT FOR: //name// CC: Garfield Mckee DATE OF SERVICE: 09/06/2017 ADDENDUM: I have personally seen and examined the patient and reviewed labs. The patient with history of Schatzki ring, which was dilated using a 45-Ivorian Savary back in 06/2017. The patient reports that she is still having problem with dysphagia. She also presented with symptoms of nausea, vomiting and abdominal pain. We will go ahead and perform an upper endoscopy and further dilate her esophagus. She is on Lovenox. Therefore, we will hold it and perform the scope tomorrow. The patient is agreeable with plan. <ELECTRONICALLY SIGNED> By: Katelyn Mcdonald MD 09/27/17 1450 1153 [id number] Mcdonald MD /nt
== END 2017-09-11 12:45 | DRG 872 ==
LOC: M.ERS 19:08 → M.TBA-ER 22:53 → M.2W 22:53 → M.ORTHSURG 09-10 08:16
PROVIDERS: Internal Medicine; Personal Emergency Response Attendant; Specialist; ADMIT Internal Medicine
PROC: 0D758ZZ Dilation of Esophagus, Via Natural or Artificial Opening Endoscopic (ICD-10-PCS; principal; 2017-09-07)
DX: A41.9 Sepsis, unspecified organism (principal); N39.0 Urinary tract infection, site not specified; K22.10 Ulcer of esophagus without bleeding; E44.1 Mild protein-calorie malnutrition; I16.0 Hypertensive urgency; M06.9 Rheumatoid arthritis, unspecified; F32.9 Major depressive disorder, single episode, unspecified; I10 Essential (primary) hypertension; F41.9 Anxiety disorder, unspecified; B95.2 Enterococcus as the cause of diseases classified elsewhere; G62.9 Polyneuropathy, unspecified; K59.00 Constipation, unspecified; Z66 Do not resuscitate; B95.62 Methicillin resistant Staphylococcus aureus infection as the cause of diseases classified elsewhere; Z16.21 Resistance to vancomycin; K44.9 Diaphragmatic hernia without obstruction or gangrene; E83.42 Hypomagnesemia; K22.2 Esophageal obstruction; Z87.11 Personal history of peptic ulcer disease; Z79.82 Long term (current) use of aspirin; Z79.899 Other long term (current) drug therapy; Z88.1 Allergy status to other antibiotic agents; Z88.2 Allergy status to sulfonamides; Z88.8 Allergy status to other drugs, medicaments and biological substances

== ENCOUNTER 2017-09-24 02:03 | Inpatient (IN) | payer MEDICARE, BC ==
[2017-09-24] VITALS (15 sets, daily range): BP systolic 83–170; BP diastolic 38–87
[~2017-09-24] VITALS: Ht 154.9 cm; Wt 45.8 kg
[~2017-09-24 02:03] MED LIST changes: +ANTIFUNGAL TOP; +CELEXA10 MG PO; +COMPOUND TOP; +NORCO 5-325 TA1 EACH PO; +NYAMYC15 GM TOP; +PROTONIX40 M1 PO; +REFRESH CELLUVI1 APP OPHTHALMIC; +ZYVOX600 MG PO
[2017-09-24 02:58] LABS: ABSOLUTE BASOPHILS 0.1 thou/uL (0.0-0.2); ABSOLUTE LYMPHOCYTES 1.5 thou/uL (0.8-5.3); ABSOLUTE MONOCYTES 0.6 thou/uL (0.0-1.2); ABSOLUTE NEUTROPHILS 11.9 thou/uL (1.6-8.1); BASOPHILS 0.4 %; EOSINOPHILS 0.1 %; HEMATOCRIT 34.6 % (37.0-47.0); HEMOGLOBIN 11.8 gm/dL (12.0-15.0); LYMPHOCYTES 10.9 %; MCH 30.9 pg (26.0-34.0); MCHC 34.2 g/dL (28.0-37.0); MCV 90.4 fL (80.0-100.0); MONOCYTES 4.3 %; MPV 7.5 fl. (7.2-11.1); NUCLEATED RBCS 0 /100WBC; PLATELET COUNT* 519 thou/uL (150-400); POLYS 84.3 %; RBC 3.83 mil/uL (4.20-5.00); RDW-CV 13.4 % (10.5-14.5)
[2017-09-24 03:08] LABS: ANION GAP 16 mmol/L (7-16); BUN 47 mg/dL (7-18); CALCIUM 8.2 mg/dL (8.5-10.1); CHLORIDE 100 mmol/L (98-107); CO2 23 mmol/L (21-32); CREATININE 1.9 mg/dL (0.6-1.3); GLUCOSE 177 mg/dL (70-99); POTASSIUM 3.3 mmol/L (3.5-5.1); SODIUM 139 mmol/L (136-145)
[2017-09-24 03:14] LABS: ALBUMIN 2.8 g/dL (3.4-5.0); ALKALINE PHOSPHATASE 79 U/L (46-116); LIPASE 160 U/L (73-393); SGOT 35 U/L (15-37); SGPT 30 U/L (30-65); TOTAL BILIRUBIN 0.5 mg/dL (<0.1-1.0); TOTAL PROTEIN 7.2 g/dL (6.4-8.2); TROPONIN-I LEVEL <0.06 ng/mL (<0.06)
--- NOTE | 2017-09-24 04:01 | NUR ---
ATTEMPT X 1 TO ESTABLISH EXTERNAL JUGULAR IV BY JUANITA SMITH IN LEFT NECK.
--- NOTE | 2017-09-24 04:12 | NUR ---
MULTIPLE ATTEMPTS TO ESTABLISH PERPHERAL IV ACCESS IN BOTH ARMS UNCUCCESSFULL. FR DURBIN NOTIFIED. DR DURBIN DISCUSSED CENTRAIL LINE PLACEMENT WITH PATIENT. PATIENT DECLINED THIS OFFER. DR DURBIN DISCUSSED WITH PATIENT PICC LINE PLACEMENT. PATIENT STATES SHE WILL ALLOW THIS.
[2017-09-24 04:31] LABS: URINE BILIRUBIN NEGATIVE (Negative); URINE BLOOD 1+ (Negative); URINE CLARITY CLEAR; URINE COLOR YELLOW; URINE GLUCOSE-RANDOM NEGATIVE (Negative); URINE KETONES TRACE (Negative); URINE LEUKOCYTES-REFLEX NEGATIVE (Negative); URINE NITRITE-REFLEX NEGATIVE (Negative); URINE PROTEIN NEGATIVE (Negative); URINE SPECIFIC GRAVITY 1.015 (1.005-1.030); URINE UROBILINOGEN 0.2 E.U./dl (0.2-1.0)
[2017-09-24 05:18] LABS: SQUAMOUS 0-3 Few /LPF (0-3); URINE RBC 3-10 Few /HPF (0-2); URINE WBC-REFLEX 0-5 Rare /HPF (0-5)
[2017-09-24 05:19] LABS: BACTERIA-REFLEX 1-9 Few /HPF (None Seen); CASTS None Seen /LPF (None Seen); CRYSTALS None Seen /LPF (None Seen); MUCUS 0-3 Light strn/LPF (None Seen)
--- NOTE | 2017-09-24 05:40 | NUR ---
PT ADMITTED TO ICU AT 0500 FOR GI BLEED. PT INCONTINENT OF BLACK TARRY STOOL AT LONGTERM AND IN ED. STOOL POSITIVE FOR BLOOD. H&H WITHIN NORMAL LIMITS. PT STATES SHE HAS HAD BLOOD IN HER STOOL BEFORE AND HAD TRANSFUSION IN PAST. PT DENIES PAIN OR DISCOMFORT AT THIS TIME. CALL LIGHT IN REACH, PT DEMONSTRATES PROPER USE.
[2017-09-24 06:59] LABS: HEMATOCRIT 28.9 % (37.0-47.0)
[2017-09-24 07:02] LABS: HEMOGLOBIN 9.6 gm/dL (12.0-15.0)
[2017-09-24 08:04] LABS: CALCIUM 7.4 mg/dL (8.5-10.1); CREATININE 1.5 mg/dL (0.6-1.3); POTASSIUM 3.1 mmol/L (3.5-5.1)
[2017-09-24 08:05] LABS: MAGNESIUM 1.1 mg/dL (1.8-2.4)
--- NOTE | 2017-09-24 08:47 | NUR ---
PATIENT CARE ASSUMED AT 0700. PATIENT ASLEEP UPON ENTERING ROOM, BUT WOKE WITH MINOR STIMULATION. ORIENTED TO PERSON, PLACE, BUT NOT TIME OR SITUATION. VERY FORGETFUL. REPEATS THE SAME QUESTIONS MULTIPLE TIMES WIHLE IN THE ROOM. NSR ON GUARD DRIVER. SOFT BPS. PULSES 2+ ON ALL EXTREMITIES. VERY THIN. KYPHOTIC. LEFT HAND CONTRACTED. PATIENT DENIES PAIN/SOA/NAUSEA. PROVIDED WITH MOUTH SWABS. NPO AT THIS TIME. D5 NS INFUSING IN LEFT FOOT 22G IV. ORDERS FOR PICC LINE PLACED, INFUSING CONSULTED. CONSENT OBTAINED FROM DPOA, CLARENCE FLEMING (DTR). PHOTO TAKEN OF SACRAL WOUND, LARGE REDDENED AREA WITH SMALL AREA THAT IS OPEN. WOUND NURSE CONSULTED. NO STOOL NOTED THIS AM, BUT HAS BEEN HAVING DARK TARRY STOOLS. POISITIVE OCCULT BLOOD. IV PROTONIX GIVEN THIS AM. GI CONSULTED. MRSA SWAB OBTAINED. [facility] MARGAR[facility] UPDATED ON STATUS. DTR, CLARENCE, UPDATED ON STATUS, BUT SHE IS IN [place] VISITING FAMILY AT THIS TIME. OTHER DPOA, MARIANA LIVES IN [place]. WILL CONTINUE WITH CURRENT PLAN OF CARE.
[2017-09-24 09:20] LABS: HEMATOCRIT 25.4 % (37.0-47.0); HEMOGLOBIN 8.5 gm/dL (12.0-15.0)
--- NOTE | 2017-09-24 09:32 | NUR ---
PATIENT HYPOTENSIVE. 62/40 BLOOD PRESSURE NOTED. CUFF CHANGED. TAKEN ON DIFFERENT ARMS. 500 NS BOLUS INFUSING. BP THEN 74/40. STAT H&H DRAWN. DR SPICER NOTIFIED. ORDERS TO CONTINUE 500 ML NS BOLUS, AND IF BLOOD PRESSURES REMAIN LOW, INFUSING 1 LITER NS MORE. INFUSING THROUGH 22G IN PATIENT'S RIGHT FOOT. ORDERS IN FOR PICC LINE, INFUSIION CALLED. WATCHING IV CAREFULLY.
--- NOTE | 2017-09-24 10:27 | EKG ---
[place] [address] ELECTROCARDIOGRAM REPORT Name: MARCELINO TIPTON Room: [address] IN [facility].#: [id number] Admission: 09/24/17 Attend Phys: Ana York Discharge: Date of : 34 Report #: [id number] THIS REPORT FOR: //name// [facility] ED Test Date: 2017-09-24 Test Time: 03:01:06 Pat Name: MARCELINO TIPTON Department: Room: [facility] Gender: F Core Extruder: BD : 1930 Requested By: Mamta Silverman Order Number: [id number] MD: Patrick Melo Measurements Intervals [place] Rate: 115 P: -63 MS: 150 QRS: -50 QRSD: 114 T: 52 QT: 367 QTc: 508 Interpretive Statements Sinus tachycardia RBBB and LAFB Left ventricular hypertrophy Prolonged QT interval Compared to ECG 09/04/2017 20:03:08 Prolonged QT interval now present Ventricular premature complex(es) no longer present Electronically Signed On 09-24-2017 10:27:00 AUTOMOTIVE SERVICE MANAGER by Patrick Melo [email or web address] <ELECTRONICALLY SIGNED> By: Patrick Melo MD, [facility] 09/24/17 1027 0301 0301 Patrick Melo MD, [facility] /EPI
--- NOTE | 2017-09-24 10:31 | NUR ---
PT KNOWN TO CASE MGT FROM PREVIOUS ADMISSION. PT IS FROM [facility]. PT IS W/C BOUND AT CARE HOME AND NEEDS ASSIST WITH ADL'S. PT IS A DNR, COPY OF OUTSIDE THE HOSPITAL DNR FORM AND ADVANCE DIRECTIVE ON THE CHART. PT ADMITTED WITH GI BLEED.
--- NOTE | 2017-09-24 10:35 | NUR ---
PATIENT'S BLOOD PRESSURES NOW STABILIZED. GI WANTS TO SCOPE PATIENT TODAY. HAS HAD BLEEDING ULCER AND ESOPHAGEAL NARROWING IN THE PAST. CLARENCE (DPOA AND DTR) CALLED AND CONSENT OBTAINED.
--- NOTE | 2017-09-24 12:32 | NUR ---
CONSULTED TO PLACE PICC. ORDER AND CONSENT NOTED ON CHART. PT CONFUSED WITH SHORT TERM MEMORY LOSS. CONSENT OBTAINED FROM DPOA BY PRIMARY NURSING. RIGHT UPPER ARM BASILIC VEIN IDENTIFIED AND NOTED TO BE WIDLEY PATENT. A 4FR DUAL LUMAN POWER PICC PLACED USING STERILE TECHNIQUE INCLUDING MAX BARRIER PRECAUTIONS PER HOSPITAL POLICY. LINE TRIMMED TO 43CM AND ADVANCED TO 0CM EXTERNAL WTIH OUT DIFFICULTY. LINE CONFIRMED WITH SHERLOCK 3CG. LINE SECURED AND RELEASED FOR IMMEDIATE USE. PRIMARY NURSING AWARE.
--- NOTE | 2017-09-24 13:52 | NUR ---
PATIENT LEFT UNIT AT 1352 FOR EGD.
--- NOTE | 2017-09-24 14:16 | NUR ---
PATIENT RETURNED FROM EGD AT 1408.
--- NOTE | 2017-09-24 14:54 | NUR ---
PATIENT ALERT AND BACK TO BASELINE. ORIENTED TO PERSON, NOT PLACE, TIME, OR SITUATION AT THIS TIME. VITALS WNL. REFER TO CHARTING. WOUND NURSE INTO SEE PATIENT. PROVIDED WITH POSITIONING WEDGES, PRAFO BOOTS. NEW BARRIER CREAM APPLIED TO BOTTOM. PATIENT PROVIDED WITH SIPS OF WATER. TRANSITIONED TO FULL LIQUID DIET. DR SPICER NOTIFIED OF PATIENT STATUS, OKAY TO DOWNGRADE TO M/S TELEMETRY STATUS. DR FINLEY STARTED PAITENT ON CARAFATE AND INCREASED FREQUENCY OF PROTONIX FOR ESOPHAGITIS.
--- NOTE | 2017-09-24 14:58 | NUR ---
WOUND CARE NOTE: WAS NOTIFIED OF A WOUND TO THE PATIENT SACRUM. HEALING, STAGE 2 PRESSURE ULCER NOTED TO SACRUM MEASURING 0.8X1.2X0.1. SHAKEEL-WOUND WITH NEW EPITHELIUM. WOUND BED IS PINK, MOIST. PATIENT'S RN APPLIED BARRIER OINTMENT. RECOMMEND TURN Q2 HOURS KEEP HOB <30 DEGREES IF CAN TOLERATE BARRIER OINTMENT BID AND PRN LIMIT LAYERS OF LINEN UNDER PATIENT
[2017-09-24 15:37] LABS: HEMOGLOBIN 6.7 gm/dL (12.0-15.0)
--- NOTE | 2017-09-24 17:27 | NUR ---
PATIENT PROGRESSING TOWARDS GOALS. TRACING NSR TO ST ON TECHNICAL TRAINING COORDINATOR. DENIES PAIN. ONE EPISODE OF NAUSEA THIS SHIFT. EGD COMPLETED, BUT SHOWED NO ACTIVE BLEED. PATIENT HAS VERY RAW ESOPHAGITIS PER GI. PROTONIX AND CARAFATE FREQUENCY INCREASED. HGB NOW 6.7. 1 UNIT PRBCS INFUSING PER DR SPICER AND H&H TO BE REDRAWN AFTERWARDS. TURNED Q2H, STAGE 2 SORE ON BOTTOM. BARRIER CREAM APPLIED. PRAFO BOOTS ON PATIENT, BUT NEEDS TO BE RECHECKED FREUQNELTY PATIENT KICKS THEM OFF. PATIENT ALERT, ORIENTED TO PERSON, SOMETIMES PLACE, VERY RARELY TIME AND SITUATION. SHORT TERM MEMORY LOSS. REPEATS QUESTIONS AND CAN BE IMPULSIVE. KAYY AND CLARENCE (CHILDREN) CALLED TODAY AND UPDATED ON PLAN OF CARE. CLARENCE PROVIDES CONSENTS DPOA. WADE (CAREGIVER) PRESENT TODAY TO VISIT WITH PATIENT AND REORIENT. BED ALARM CHECKED AND IS ON. FALL RISK BAND, ALLERGY BAND, DNR, AND NAME BAND IN PLACE. PATIENT NOW M/S TELE. WILL CONTINUE WITH PLAN OF CARE.
--- NOTE | 2017-09-24 18:39 | NUR ---
PATIENT TRANSFERED WITH [facility] BY BED AT 1839.
[2017-09-24 21:03] LABS: HEMATOCRIT 26.8 % (37.0-47.0)
[2017-09-25] VITALS: BP 82/35
--- NOTE | 2017-09-25 04:00 | NUR ---
ASSUMED CARE AT 1999, ASSESSMENT CHARTED. PATIENT ALERT/ORIENTED X4, FORGETFUL AT TIMES, RESTING IN BED. PATIENT TURNED AND REPOSITIONED IN BED WITH PILLOWS Q2H. BARRIER CREAM APPLIED TO BUTTOCKS. DENIES NEEDS. STATES HAVING PAIN TO HEAD/ABDOMEN/LEGS, MEDS PER MAR WITH RELIEF NOTED. IVEY TO DD. TOLERATING CLEAR LIQUID DIET WITH NO NAUSEA/VOMITING NOTED. REMAINS IN ISOLATION FOR MRSA URINE. PRAFO BOOTS INTACT. BED ALARM ON. CALL LIGHT WITHIN REACH, ENCOURAGED TO CALL FOR NEEDS.
[2017-09-25 04:20] VITALS: BP 136/110
[2017-09-25 05:11] LABS: HEMOGLOBIN 8.2 gm/dL (12.0-15.0); MCH 30.1 pg (26.0-34.0); MCHC 34.3 g/dL (28.0-37.0); MCV 87.7 fL (80.0-100.0); MPV 7.6 fl. (7.2-11.1); RBC 2.73 mil/uL (4.20-5.00); WBC 8.1 thou/uL (4.0-11.0)
[2017-09-25 05:47] LABS: CREATININE 1.3 mg/dL (0.6-1.3); MAGNESIUM 2.1 mg/dL (1.8-2.4); POTASSIUM 3.8 mmol/L (3.5-5.1)
[2017-09-25 08:00] VITALS: BP 120/40
--- NOTE | 2017-09-25 10:00 | NUR ---
ASSUMED PT CARE AT 0730, FULL ASSESMENT DONE CHARTED. PT ORIENTED X2, ANXIOUS, ASKING MANY QUESTIONS ABOUT WHY SHE IS HERE, IF SHE HAD CLOTHES ON, WHO BROUGHT HER IN. ATTEMPTED TO EDUCATE PT. HER VSS, SR/1ST AVB/BBB ON THE MONITOR. PT C/O HEAD PAIN AT TIMES. GIVEN MEDS PER SEP. IVEY IN PLACE, TURNED Q 2 HRS. HEEL MEDEX BOOTS IN PLACE. CALL LIGHT IN REACH, PT USES IT APPROPRIATLY. WILL CONTINUE WITH PLAN OF CARE.
[2017-09-25 12:35] VITALS: BP 144/64
--- NOTE | 2017-09-25 12:55 | NUR ---
Responded to Code Stroke Activation in 219. Accompanied patient to CT and Chest xray. Patient able to partially complete NIHSS. Right handed container packer operator in take, able to raise right arm, BLE weakness, bilateral sensation intact, follow commands, gaze normal. Does not use left hand unable to keep left arm off bed. Was not cooperative with entire exam, did not have notable facial droop. Returned patient to 219 after radiology. Handoff to RN.
--- NOTE | 2017-09-25 13:39 | NUR ---
HOURLY ROUNDING DONE ON PT AT 1230, PT FOUND ATTEMPTING TO EAT LUNCH, DROOLING HER FOOD OUT OF THE LEFT SIDE OF MOUTH, PT APPEARED TO HAVE LEFT SIDE FACIAL DROOP, ATTEMPTED TO DO NIH WITH PT, SHE FOLLOWED SOME INSTRUCTIONS BUT WOULD NOT FULLY PARTICIPATE DUE TO ANXIETY. PT DID READ "YOU KNOW HOW", "DOWN TO EARTH" AND WAS ABLE TO IDENTIFY "GLOVE", "SQUIRES" ON NIH SCALE.LEFT SIDE OF MOUTH DROOPING, LEFT EYE SLIGHTLY DROOPING. PT WAS UNABLE TO REPORT IF SENSATION WAS DECREASED, DID NOT ATTEMPT TO PROVIDER RELATIONS SPECIALIST. PT ALERT, VSS APPROPRIATE. DENIES PAIN. DR SPICER NOTIFIED, CODE STROKE CALLED TO ENTRY MANAGER. PT TAKEN TO CT SCAN.
[2017-09-25 16:39] VITALS: BP 142/54
--- NOTE | 2017-09-25 18:59 | NUR ---
SPOKE TO PTS DTR, EDUCATED ON EVENTS OF THE DAY, UPDATED ON PLAN OF CARE. SHE VERBALIZED UNDERSTANDING. HOPING TO COME SEE PT TOMORROW. PTS FRIEND WADE(?) IN TO SEE PT THIS AFTERNOON. ASKING ABOUT PTS CLOTHES, NO CLOTHES IN PT ROOM OR DOCUMENTED ON ADMISSION. UPDATED PT ON THIS. PT SHOWING NO NEW SIGNS OF STROKE. MONITORED CLOSLY. VSS, SR ON THE MONITOR. FALL PRECATIONS IN PLACE, TURNED Q2 HR. SHE CONTINUES TO BE VERY ANXIOUS. PT NOT EATING WELL, OFFERED BOOST PUDDING AND DRINK. WILL CONTINUE TO MONITOR.
[2017-09-25 20:00] VITALS: BP 122/51
--- NOTE | 2017-09-25 22:58 | NUR ---
RECIEVED REPORT AND ASSUMED CARE OF PATIENT AT 1930. PRENATAL TEACHER IN PLACE TRACING SR. ASSESSMENT AND VITALS COMPLETED CHARTED, VSS. PATIENT A&OX4, FORGETFUL. PATIENT WEANED TO ROOM AIR, O2 SATS 97%. PATIENT HAS MANY COMPLAINTS AND REQUESTS. SHE CONTINUALLY STATES THINGS LIKE: "I'M HURTING, I'M NOT COMFORTABLE, I WANT MY BAG OF STUFF, I WANT A WARM BLANKET." PATIENT ANXIOUS AND USING CALL LIGHT FREQUENTLY. PATIENT PROVIDED WITH TRAMADOL FOR PAIN AND ANXIETY MEDICATION. PATIENT INCONTINENT OF URINE, RUFINO CHANGED AND SHAKEEL CARE PROVIDED. PATIENT REPOSITIONED. PATIENT'S BAG OF STUFF NEXT TO HER REQUESTED. WARM BLANKET PROVIDED. PATIENT COMFORTABLE AT THIS TIME. GOAL IS TO PROMOTE REST AND COMFORT AND EFFECTIVE PAIN MANAGEMENT. CALL LIGHT WITHIN REACH
[2017-09-26] VITALS: BP 146/54
[2017-09-26 04:00] VITALS: BP 124/53
[2017-09-26 05:29] LABS: HEMATOCRIT 25.6 % (37.0-47.0); HEMOGLOBIN 8.7 gm/dL (12.0-15.0)
--- NOTE | 2017-09-26 07:44 | NUR ---
PATIENT PARTIALLY PROGRESSING TOWARDS GOALS: PATIENT'S PAIN PARTIALLY MANAGED WITH TRAMADOL AND REPOSITIONING. PATIENT RESTED ON AND OFF THROUGHOUT SHIFT. HOURLY ROUNDING OBSERVED. CALL LIGHT WITHIN REACH
[2017-09-26 08:00] VITALS: BP 137/67
[2017-09-26] MEDS ORDERED: CARAFATE 11 GM/10 M1 PO (08:12)
--- NOTE | 2017-09-26 09:08 | NUR ---
Pt discharging back to [facility] today. Faxed dc orders. Chart copied. Nurse report number provided, . Updated Pt's dtr, Janice. Facility will picker / packer and transport at 2pm.
[2017-09-26 11:41] VITALS: BP 136/62
--- NOTE | 2017-09-26 11:49 | NUR ---
ASSUMED CARE OF PATIENT THIS AM AT 0730. PATIENT IS ALERT AND ORIENTED TO PERSON. PATIENT REORIENTED TO TIME AND SITUATION. TELE SHOWS SR. BLAKELY IN TO ROUND AND DISCHARGE ORDERS WRITTEN. PATIENT ASSISTED WITH ADLS THROUGHOUT THE DAY. PATIENT REMAINS IN CONTACT ISOLATION. NO S/S OF BLEEDING AT THIS TIME. NO FALLS OR INJURY.
[2017-09-26 13:58] VITALS: BP 136/62
--- NOTE | 2017-09-27 14:51 | CON ---
[address] [address] CONSULTATION Name: MARCELINO TIPTON Room: [address] IN .R.#: [id number] Admission: 09/24/17 Attend Phys: Ana York Discharge: 09/26/17 Date of : 32 Report #: [id number] THIS REPORT FOR: //name// CC: Logan Mckee DICTATED BY: Munira Gray [facility] DATE OF SERVICE: 09/24/2017 Please note at the time of this dictation, the patient was seen and physically examined by myself. REASON FOR CONSULTATION: GI bleed. HISTORY OF PRESENT ILLNESS: This is an 87-year-old female who is well known to our practice who was recently last seen in August of this year who underwent an EGD that showed a distal esophageal ulcer, a Schatzki ring in which she was dilated with a 45 Savary and a hiatal hernia, she was to be on Protonix and Carafate at that time. It is noted via the [facility] staff that she started having some nausea and vomiting and reporting some black stools, which apparently have been ongoing for the last 2 weeks, but the vomiting has only been for 1 day. The patient has underlying dementia and is a very poor historian. ALLERGIES: SULFA, PROMETHAZINE, PAXIL, CYMBALTA, CIPRO, ZITHROMAX and AMOXICILLIN. MEDICATIONS FROM HOME: Include Neurontin, Phenergan, Theragran, Remeron, Caltrate, hydroxyzine, Colace, Zestril, Celexa, Ativan, Ultram, Protonix, aspirin, Tylenol, MiraLax, cranberry, Ventolin, throat lozenges, calcium, Zyrtec, loperamide antifungal cream, and nystatin. PAST MEDICAL HISTORY: Esophageal ulcer, sliding hiatal hernia, rheumatoid arthritis, acute renal failure, agitation, pneumonia, shingles, syncope, neuropathy, depression, hypertension, and anxiety. PAST SURGICAL HISTORY: Dilatation. FAMILY HISTORY: Noncontributory. SOCIAL HISTORY: The patient is a resident at the [facility]. REVIEW OF SYSTEMS: Twelve-point review of systems is essentially negative except what [place] [address] CONSULTATION Name: MARCELINO TIPTON Room: [address]#: [id number] Admission: 09/24/17 Attend Phys: Ana York Discharge: 09/26/17 Date of : 32 Report #: [id number] PHYSICAL EXAMINATION: VITAL SIGNS: Temperature 37.1, pulse 86, respirations 19, and blood pressure 131/56. HEART: Regular rate and rhythm. LUNGS: Clear, slightly diminished. ABDOMEN: Soft, positive bowel sounds in all 4 quadrants with some epigastric tenderness noted to touch. LABORATORY DATA: Hemoglobin on admission was 11.8, she has dropped down to 8.5, hematocrit 25.4, white count is 14 and platelet is 579. Sodium 142, potassium 3.1, chloride 107, CO2 of 27, BUN is 47, creatinine 1.5, GFR is 33, and a glucose of 116. IMPRESSION: 1. Gastrointestinal bleed. 2. Melanotic stool. 3. Leukocytosis. 4. Dementia. PLAN: 1. EGD today with Dr. Mcdonald. 2. Further recommendations to be made once the EGD has been performed. 3. Transfuse for hemoglobin less than 7. Thank you for allowing us to participate in this patient's care. Please do not hesitate to call with any questions in regard to this consult. ADDENDUM I have personally seen and examined the patient and reviewed labs. The patient is known to us as she had upper endoscopy just a couple of weeks ago. She presents with melanotic stool and epigastric pain. The patient is known to have history of severe esophagitis. We will go ahead and perform an upper endoscopy to further evaluate her esophagitis. If her hemoglobin drops below 7, we will transfuse her. <ELECTRONICALLY SIGNED> By: Katelyn Mcdonald MD 09/27/17 1451 1220 [id number] Mcdonald MD /nt
== END 2017-09-26 15:00 | DRG 380 ==
LOC: M.ERS 02:03 → M.2W 03:42 → M.ICU 03:42 → M.TBA-ER 03:42 → M.ICU 05:06 → M.2W 20:31
PROVIDERS: Emergency Medicine; Internal Medicine; ADMIT Internal Medicine
PROC: 0DJ08ZZ Inspection of Upper Intestinal Tract, Via Natural or Artificial Opening Endoscopic (ICD-10-PCS; principal; 2017-09-24)
PROC: 30233N1 Transfusion of Nonautologous Red Blood Cells into Peripheral Vein, Percutaneous Approach (ICD-10-PCS; 2017-09-24)
DX: K22.11 Ulcer of esophagus with bleeding (principal); E43 Unspecified severe protein-calorie malnutrition; N17.0 Acute kidney failure with tubular necrosis; Z68.1 Body mass index [BMI] 19.9 or less, adult; M06.9 Rheumatoid arthritis, unspecified; G62.9 Polyneuropathy, unspecified; F32.9 Major depressive disorder, single episode, unspecified; I10 Essential (primary) hypertension; F41.9 Anxiety disorder, unspecified; F03.90 Unspecified dementia, unspecified severity, without behavioral disturbance, psychotic disturbance, mood disturbance, and anxiety; K22.2 Esophageal obstruction; K44.9 Diaphragmatic hernia without obstruction or gangrene; J44.9 Chronic obstructive pulmonary disease, unspecified; E86.9 Volume depletion, unspecified; E87.6 Hypokalemia; D72.829 Elevated white blood cell count, unspecified; Z79.899 Other long term (current) drug therapy; Z88.1 Allergy status to other antibiotic agents; Z88.2 Allergy status to sulfonamides; Z88.8 Allergy status to other drugs, medicaments and biological substances

== ENCOUNTER 2017-10-20 07:32 | Inpatient (IN) | payer MEDICARE, BC ==
[~2017-10-20] VITALS: Ht 154.9 cm; Wt 67.1 kg
[2017-10-20 07:35] VITALS: BP 127/66
[2017-10-20] MEDS ORDERED: TYLENOL325 MG PO (07:53)
[2017-10-20 08:06] LABS: HEMATOCRIT 35.8 % (37.0-47.0); HEMOGLOBIN 11.8 gm/dL (12.0-15.0); MCH 29.1 pg (26.0-34.0); MCHC 33.1 g/dL (28.0-37.0); MCV 87.8 fL (80.0-100.0); MPV 7.1 fl. (7.2-11.1); NUCLEATED RBCS 0 /100WBC; PLATELET COUNT* 360 thou/uL (150-400); RBC 4.08 mil/uL (4.20-5.00); RDW-CV 14.9 % (10.5-14.5); WBC 16.4 thou/uL (4.0-11.0)
[2017-10-20 08:17] LABS: APTT 24.7 Seconds (25.0-31.3)
[2017-10-20 08:28] LABS: ANION GAP 9 mmol/L (7-16); BUN 21 mg/dL (7-18); CALCIUM 8.7 mg/dL (8.5-10.1); CHLORIDE 107 mmol/L (98-107); CO2 26 mmol/L (21-32); CREATININE 1.2 mg/dL (0.6-1.3); GLUCOSE 111 mg/dL (70-99); POTASSIUM 3.7 mmol/L (3.5-5.1); SODIUM 142 mmol/L (136-145)
[2017-10-20 08:33] LABS: ABSOLUTE EOSINOPHILS 0.2 thou/uL (0.0-0.7); ABSOLUTE LYMPHOCYTES 0.8 thou/uL (0.8-5.3); ABSOLUTE MONOCYTES 0.2 thou/uL (0.0-1.2); ABSOLUTE NEUTROPHILS 15.3 thou/uL (1.6-8.1); ATYPICAL LYMPHS 3 %; PLATELET ESTIMATE ADEQUATE
[2017-10-20 08:33] LABS: URINE BLOOD 1+ (Negative); URINE CLARITY CLOUDY; URINE COLOR YELLOW; URINE GLUCOSE-RANDOM NEGATIVE (Negative); URINE KETONES TRACE (Negative); URINE PROTEIN 2+ (Negative); URINE UROBILINOGEN 0.2 E.U./dl (0.2-1.0)
[2017-10-20 08:34] LABS: ALBUMIN 2.8 g/dL (3.4-5.0); ALKALINE PHOSPHATASE 114 U/L (46-116); SGOT 29 U/L (15-37); SGPT 26 U/L (30-65); TOTAL BILIRUBIN 0.4 mg/dL (<0.1-1.0); TOTAL PROTEIN 6.5 g/dL (6.4-8.2); TROPONIN-I LEVEL <0.06 ng/mL (<0.06)
[2017-10-20 08:37] LABS: ICTOTEST (BILI CONFIRMATORY) Negative (Negative); URINE BILIRUBIN 1+ (Negative); URINE LEUKOCYTES-REFLEX 3+ (Negative); URINE NITRITE-REFLEX POSITIVE (Negative)
[2017-10-20 08:39] LABS: SQUAMOUS 0-3 Few /LPF (0-3); URINE WBC-REFLEX >25 Many /HPF (0-5)
[2017-10-20 08:40] LABS: CASTS None Seen /LPF (None Seen); CRYSTALS None Seen /LPF (None Seen); URINE RBC 3-10 Few /HPF (0-2)
[2017-10-20 10:46] VITALS: BP 158/84
--- NOTE | 2017-10-20 14:39 | EKG ---
[place] [address] ELECTROCARDIOGRAM REPORT Name: MARCELINO TIPTON Room: [address] IN ..#: [id number] Admission: 10/20/17 Attend Phys: Bryce Kraft MD Discharge: Date of : 32 Report #: [id number] THIS REPORT FOR: //name// [facility] ED Test Date: 2017-10-20 Test Time: 07:59:04 Pat Name: MARCELINO SAEED Department: Room: [facility] Gender: F Housing Quality Standard Inspector: Stacia GALLEGOS : 1930 Requested By: Daniel Ramos Order Number: [id number] MD: Abdulaziz Serrato Measurements Intervals [place] Rate: 109 P: 75 MT: 171 QRS: -42 QRSD: 119 T: 10 QT: 365 QTc: 492 Interpretive Statements Sinus tachycardia Incomplete RBBB and LAFB Left ventricular hypertrophy, bivoltage Compared to ECG 09/24/2017 03:01:06 Incomplete right bundle-branch block now present Prolonged QT interval no longer present Electronically Signed On 10-20-2017 14:39:03 CDT by Abdulaziz Serrato [email or web address] <ELECTRONICALLY SIGNED> By: Abdulaziz Serrato MD, FAC 10/20/17 1439 [id number] Abdulaziz Serrato MD, FAC /EPI
[2017-10-20 16:00] VITALS: BP 163/73
[2017-10-21 00:50] VITALS: BP 151/69
[2017-10-21 02:27] VITALS: BP 153/78
[2017-10-21 04:33] LABS: HEMATOCRIT 34.6 % (37.0-47.0); HEMOGLOBIN 11.4 gm/dL (12.0-15.0); MCH 28.7 pg (26.0-34.0); MCHC 32.8 g/dL (28.0-37.0); MCV 87.6 fL (80.0-100.0); MPV 7.5 fl. (7.2-11.1); RBC 3.95 mil/uL (4.20-5.00); RDW-CV 14.6 % (10.5-14.5); WBC 23.4 thou/uL (4.0-11.0)
[2017-10-21 05:03] LABS: CREATININE 0.9 mg/dL (0.6-1.3); MAGNESIUM 1.3 mg/dL (1.8-2.4); POTASSIUM 3.4 mmol/L (3.5-5.1)
--- NOTE | 2017-10-21 06:02 | NUR ---
ASSESSMENT COMPLETE. PT AWAKE AND CONFUSED MOST OF THE NIGHT. PT HAS ADEQAUTE SATS ON ROOM AIR, VITALS STABLE. PT IS INCONT, Q2 TURN FOR SKIN INTEGRITY. PT TAKES MEDS CRUSHED WITH PUDDING. PT IS IN ISOLATION FOR MRSA HX. PT HAS IV FLUIDS INFUSING. PT IS FALL RISK, BED ALARM ON. CALL LIGHT WITHIN REACH, WILL CONTINUE PLAN OF CARE
[2017-10-21 08:00] VITALS: BP 139/73
[2017-10-21 15:58] VITALS: BP 119/84
[2017-10-22 01:59] VITALS: BP 127/59
[2017-10-22 05:08] LABS: CALCIUM 8.2 mg/dL (8.5-10.1); CREATININE 1.1 mg/dL (0.6-1.3); MAGNESIUM 2.3 mg/dL (1.8-2.4); POTASSIUM 4.3 mmol/L (3.5-5.1)
--- NOTE | 2017-10-22 05:58 | NUR ---
ASSESSMENT COMPLETE. PT SLEPT THROUGH THE NIGHT. PT TURNED Q2 FOR SKIN INTEGRITY. PT INCONT. PT DENIES PAIN AND N/V. ON ROOM AIR WITH ADEQUATE SATS. SEE ASSESSMENT AND VITALS FOR OTHER DETAILS. BED ALARM ON, CALL LIGHT WITHIN REACH. WILL CONTINUE PLAN OF CARE
[2017-10-22 08:00] VITALS: BP 127/59
--- NOTE | 2017-10-22 11:24 | NUR ---
CM SPOKE TO PATIENT TO DISCUSS HOME SITUATION, DISCHARGE PLANNING, AND TO INFORM OF THE ROLE OF CM. PATIENT RESTING WITH EYES CLOSED AT THIS TIME. CM WILL F/U WITH PATIENT TO ASSESS DISCHARGE PLANNING NEEDS. 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 [facility] AT [facility] ASSIST THE PATIENT WITH BATHING AND DRESSING. PATIENT USES A WHEELCHAIR FOR MOBILITY. CM WILL REMAIN AVAILABLE TO ASSIST AND FOLLOW NEEDED.
[2017-10-22 16:01] VITALS: BP 157/76
--- NOTE | 2017-10-22 19:44 | NUR ---
RESUMED CARE THIS AM. PATIENT CONT TO BE MANIPULATIVE WITH STAFF, DEMANDING MULTIPLE INTERVENTIONS TO BE COMPLETED AT THE SAME TIME, INSULTING STAFF WHEN UNREASONABLE NEEDS ARE NOT MET. PATIENT DEPENDENT ON STAFF FOR REPOSITIONING. THOUGH PATIENT IS ABLE TO FEED SELF MEALS, UNABLE TO FEED SELF APPLESAUCE WITH CRUSHED PILLS DURING MED PASS. PATIENT REPORTS LOSS OF MEMEMORY, LOSS OF VISION, LOSS OF ABILITY TO SWALLOW, LOSS OF ABILITY TO BREATHE, ALL WITH NO DISTRESS NOTED. "I CAN'T EAT", SAYS PATIENT WHILE EATING SANDWICH. CONSTANTLY INCONTINENT OF URINE, TURNED FROM SIDE-SIDE HOURLY, SHAKEEL CARE PROVIDED. MOVING MINIMALLY TOWARD DISCHARGE GOALS, CALL LIGHT IN REACH, CONT POC.
[2017-10-23 00:26] VITALS: BP 124/53
--- NOTE | 2017-10-23 00:47 | NUR ---
PT CARE TRANSFERRED TO [facility]. CALL LITE IN EASY REACH, BED ALARM ON FOR SAFETY.
[2017-10-23 04:09] LABS: HEMATOCRIT 27.1 % (37.0-47.0); MCH 29.8 pg (26.0-34.0); MCV 87.5 fL (80.0-100.0); MPV 7.4 fl. (7.2-11.1); RBC 3.1 mil/uL (4.20-5.00); RDW-CV 14.7 % (10.5-14.5); WBC 11.2 thou/uL (4.0-11.0)
[2017-10-23 04:26] LABS: CALCIUM 8.5 mg/dL (8.5-10.1); MAGNESIUM 1.8 mg/dL (1.8-2.4); POTASSIUM 4.1 mmol/L (3.5-5.1)
[2017-10-23 04:27] LABS: HEMOGLOBIN 9.2 gm/dL (12.0-15.0)
--- NOTE | 2017-10-23 06:06 | NUR ---
ASSESSMENT COMPLETE. PT UP PART OF THE NIGHT, VERY CONFUSED AND FORGETGUL. PT IS ON ROOM AIR WITH ADEQAUTE SATS. PT IS INCONT, TURNED Q2 FOR SKIN INTEGRITY. BED ALARM ON. SEE ASSESSMENT AND VITALS FOR OTHER DETAILS. CALL LIGHT WITHIN REACH, WILL CONTINUE PLAN OF CARE
[2017-10-23 07:50] VITALS: BP 120/50
--- NOTE | 2017-10-23 13:31 | NUR ---
WOUND CARE NOTE: ASSESSMENT FOR PRESSURE ULCER TO HER SACRUM. PATIENT PRESENTS WITH A HEALING PRESSURE ULCER TO HER SACRAL AREA. AREA IS REDDENED, BUT BLANCHABLE. NEW EPITHELIUM NOTED AND SEVERAL SMALL, DRY SCABS. APPLIED BARRIER OINTMENT AND PATIENT WAS TURNED TO RIGHT SIDE. RECOMMEND TURN Q2 HOURS-KEEP OFF SACRAL AREA ENCOURAGE GOOD NUTRITION AND HYDRATION BARRIER OINTMENT BID AND PRN INCONTINENCE LIMIT LAYERS OF LINEN UNDER PATIENT.
[2017-10-23 16:00] VITALS: BP 136/61
[2017-10-23 16:13] LABS: URINE BILIRUBIN NEGATIVE (Negative); URINE BLOOD NEGATIVE (Negative); URINE CLARITY CLEAR; URINE COLOR YELLOW; URINE GLUCOSE-RANDOM NEGATIVE (Negative); URINE KETONES NEGATIVE (Negative); URINE LEUKOCYTES-REFLEX NEGATIVE (Negative); URINE NITRITE-REFLEX NEGATIVE (Negative); URINE PROTEIN NEGATIVE (Negative); URINE SPECIFIC GRAVITY 1.015 (1.005-1.030); URINE UROBILINOGEN 0.2 E.U./dl (0.2-1.0)
--- NOTE | 2017-10-23 16:18 | NUR ---
PATIENT ALERT TO SELF ONLY, CONFUSED, NEEDS CONSTANT ORIENTATION, AND REASSURANCE. CONSTANTLY CALLING OUT PACU RN LIGHT STATING "I DON'T FEEL GOOD, CAN YOU CALL MY DAUGHTER." DAUGHTER CALLED X3 THROUGHOUT DAY, DAUGHTER STATES THIS IS NORMAL BEHAVIOR FOR PATIENT. ON ROOM AIR, IV RIGHT HAND, SALINE LOCK. BEDREST, Q2 TURN, BOTTOM RED SKIN INTACT, BLANCHABLE. BARRIER CREAM APPLIED. NAUSEA MEDICATION GIVEN. INCONTINENT OF B&B, STRAIGHT CATH COMPLETED FOR U/A AND CULTURE, SENT TO LAB. NO OTHER CONCERNS AT THIS TIME. APPROPRAITE AND COOPORATIVE WITH CARE.
[2017-10-23 21:00] VITALS: BP 126/63
--- NOTE | 2017-10-24 05:09 | NUR ---
PATIENT HAS BEEN UP ALL NIGHT ON THE CALL LIGHT PRETTY MUCH NON STOP. STATING SHE CAN'T BREATHE WHEN OXYGEN SATS ARE 95-96% ON ROOM AIR EVEN AFTER BREATHING TREATMENT PATIENT WAS STILL COMPLAINING SHE COULDNT BREATHE. PATIENT HAS BEEN COMPLAINING OF NAUSEA ALL NIGHT IV AND PO MEDS WERE GIVEN WITH VERY LITTLE RELIEF ABOUT 0300 PATIENT DID VOMIT A FAIR AMOUNT OF BROWN EMESIS TWICE. PATIENT STILL COMPLAINING OF NAUSEA EVEN AFTER NEW IV WAS STARTED AND MORE IV ZOFRAN WAS GIVEN. PATIENT HAS ALSO HAD ABOUT 5 LOOSE BROWN STOOLS THIS SHIFT. PATIENT HAS BEEN TURNED ABOUT EVERY TWO HOURS. WILL CONTINUE TO MONITOR.
[2017-10-24 05:17] LABS: HEMATOCRIT 31.6 % (37.0-47.0); HEMOGLOBIN 10.7 gm/dL (12.0-15.0); MCH 29.6 pg (26.0-34.0); MCHC 33.7 g/dL (28.0-37.0); MCV 87.7 fL (80.0-100.0); MPV 7.6 fl. (7.2-11.1); RBC 3.61 mil/uL (4.20-5.00); RDW-CV 14.8 % (10.5-14.5); WBC 11.1 thou/uL (4.0-11.0)
[2017-10-24 05:44] LABS: ALBUMIN 2.6 g/dL (3.4-5.0); CALCIUM 8.8 mg/dL (8.5-10.1); CREATININE 1.1 mg/dL (0.6-1.3); POTASSIUM 3.6 mmol/L (3.5-5.1); TOTAL BILIRUBIN 0.4 mg/dL (<0.1-1.0); TOTAL PROTEIN 6.3 g/dL (6.4-8.2)
[2017-10-24 08:12] VITALS: BP 161/88
[2017-10-24] MEDS ORDERED: CEFUROXIME250 MG PO (11:35)
[2017-10-24 11:47] VITALS: BP 161/88
--- NOTE | 2017-10-24 12:22 | NUR ---
ORDERS RECEIVED. PATIENT DECLINED P.T. MULTIPLE TIMES. ABSOLUTELY WILL NOT PARTICIPATE. PATIENT IS THEREFORE DISCHARGED FROM P.T. SECONDARY TO NON-COMPLIANCE. ALIYA NAIK, MPT
[2017-10-24 12:59] VITALS: BP 161/88
--- NOTE | 2017-10-24 12:59 | NUR ---
Pt to dc home to [facility] today. MARTHA spoke with Valdemar in admissions at [facility] who accepted pt and scheduled transportation for 1500. MARTHA spoke with pt eamonr Priscilla to discuss dc plan. MARTHA faxed dc orders/med list to [facility] fax number [phone].
--- NOTE | 2017-10-24 15:20 | NUR ---
PATIENT DISCHARGED TO [facility]. ATTEPTED TO CALL REPORT BUT NO ANSWER, WILL TRY AGAIN. PATIENT ASSISTED WITH GETTING DRESSED AND PACKING BELONGINGS. COPY OF CHART AND DISCHARGE PAPERS GIVEN TO TRANSPORTER. FERMIN ASSISTED TO WHEELCHAIR. PATIENT LEFT BY WHEELCHAIR VAN AT THIS TIME.
== END 2017-10-24 15:20 | DRG 871 ==
LOC: M.ERS 07:32 → M.TBA-ER 10:06 → M.3W 10:06
PROVIDERS: Family Medicine; Internal Medicine; ADMIT Internal Medicine
DX: A41.9 Sepsis, unspecified organism (principal); G92 Toxic encephalopathy; N39.0 Urinary tract infection, site not specified; E87.2 Acidosis; F41.9 Anxiety disorder, unspecified; M06.9 Rheumatoid arthritis, unspecified; F03.90 Unspecified dementia, unspecified severity, without behavioral disturbance, psychotic disturbance, mood disturbance, and anxiety; F32.9 Major depressive disorder, single episode, unspecified; I10 Essential (primary) hypertension; Z66 Do not resuscitate; B96.4 Proteus (mirabilis) (morganii) as the cause of diseases classified elsewhere; S70.01XA Contusion of right hip, initial encounter; W19.XXXA Unspecified fall, initial encounter; G62.9 Polyneuropathy, unspecified; Z88.1 Allergy status to other antibiotic agents; Z88.2 Allergy status to sulfonamides; Z88.8 Allergy status to other drugs, medicaments and biological substances; Z79.899 Other long term (current) drug therapy; Z87.01 Personal history of pneumonia (recurrent); Y93.89 Activity, other specified; Y92.89 Other specified places as the place of occurrence of the external cause; Y99.8 Other external cause status

== ENCOUNTER 2017-11-24 18:52 | Emergency (ER) | payer MEDICARE, BC, MEDICAID ==
[~2017-11-24] VITALS: Ht 154.9 cm; Wt 59.0 kg
[~2017-11-24 18:52] MED LIST changes: +CEFUROXIME250 MG PO
[2017-11-24 20:38] LABS: URINE BILIRUBIN NEGATIVE (Negative); URINE BLOOD NEGATIVE (Negative); URINE CLARITY CLEAR; URINE COLOR YELLOW; URINE GLUCOSE-RANDOM NEGATIVE (Negative); URINE KETONES NEGATIVE (Negative); URINE LEUKOCYTES-REFLEX NEGATIVE (Negative); URINE NITRITE-REFLEX NEGATIVE (Negative); URINE PROTEIN TRACE (Negative); URINE SPECIFIC GRAVITY 1.025 (1.005-1.030); URINE UROBILINOGEN 0.2 E.U./dl (0.2-1.0)
[2017-11-24 20:53] LABS: HEMATOCRIT 33.7 % (37.0-47.0); HEMOGLOBIN 11.1 gm/dL (12.0-15.0); MCH 29.6 pg (26.0-34.0); MCHC 32.9 g/dL (28.0-37.0); MCV 89.9 fL (80.0-100.0); MPV 6.8 fl. (7.2-11.1); NUCLEATED RBCS 0 /100WBC; PLATELET COUNT* 346 thou/uL (150-400); RBC 3.75 mil/uL (4.20-5.00); RDW-CV 15.3 % (10.5-14.5); WBC 10.9 thou/uL (4.0-11.0)
[2017-11-24 21:15] LABS: CALCIUM 8.7 mg/dL (8.5-10.1); CREATININE 1.2 mg/dL (0.6-1.3); POTASSIUM 4.3 mmol/L (3.5-5.1)
[2017-11-24 21:20] LABS: ALBUMIN 2.5 g/dL (3.4-5.0); TOTAL BILIRUBIN 0.3 mg/dL (<0.1-1.0); TOTAL PROTEIN 6.1 g/dL (6.4-8.2)
[2017-11-24 21:55] LABS: ABSOLUTE LYMPHOCYTES 0.3 thou/uL (0.8-5.3); ABSOLUTE MONOCYTES 0.7 thou/uL (0.0-1.2); ABSOLUTE NEUTROPHILS 9.9 thou/uL (1.6-8.1); GIANT PLATELETS OCCASIONAL; PLATELET ESTIMATE ADEQUATE
[2017-11-24 21:57] VITALS: BP 164/72
== END 2017-11-24 21:59 | disposition home or self-care (01) ==
LOC: M.ERS 18:52
PROVIDERS: Nurse Practitioner Family
DX: S09.8XXA Other specified injuries of head, initial encounter (principal); L89.152 Pressure ulcer of sacral region, stage 2; M06.9 Rheumatoid arthritis, unspecified; F32.9 Major depressive disorder, single episode, unspecified; I10 Essential (primary) hypertension; F41.9 Anxiety disorder, unspecified; G62.9 Polyneuropathy, unspecified; Z86.14 Personal history of Methicillin resistant Staphylococcus aureus infection; Z88.1 Allergy status to other antibiotic agents; Z88.8 Allergy status to other drugs, medicaments and biological substances; W18.39XA Other fall on same level, initial encounter; Y93.89 Activity, other specified; Y92.89 Other specified places as the place of occurrence of the external cause; Y99.8 Other external cause status

== ENCOUNTER 2017-11-26 14:03 | Emergency (ER) | payer MEDICARE, BC, MEDICAID ==
[~2017-11-26] VITALS: Ht 160 cm; Wt 45.4 kg
[2017-11-26] MEDS ORDERED: CARAFATE 1 GM TA1 G1 PO (14:20)
[2017-11-26] MEDS ORDERED: JUVEN PACKET1 EAC1 PO (14:21)
[2017-11-26] MEDS ORDERED: PREDNISONE 2.52.5 MG PO (14:21)
[2017-11-26] MEDS ORDERED: BUSPIRONE HCL5 MG PO (14:22)
[2017-11-26 14:49] LABS: URINE BILIRUBIN NEGATIVE (Negative); URINE BLOOD TRACE (Negative); URINE CLARITY SL CLOUDY; URINE COLOR YELLOW; URINE GLUCOSE-RANDOM NEGATIVE (Negative); URINE KETONES NEGATIVE (Negative); URINE NITRITE-REFLEX NEGATIVE (Negative); URINE PROTEIN NEGATIVE (Negative); URINE UROBILINOGEN 0.2 E.U./dl (0.2-1.0)
[2017-11-26 14:50] LABS: URINE LEUKOCYTES-REFLEX 2+ (Negative)
[2017-11-26 14:55] LABS: SQUAMOUS 0-3 Few /LPF (0-3); WBC CLUMPS Few (None Seen)
[2017-11-26 14:56] LABS: CASTS None Seen /LPF (None Seen); CRYSTALS None Seen /LPF (None Seen); MUCUS None Seen strn/LPF (None Seen); URINE RBC 3-10 Few /HPF (0-2)
[2017-11-26 15:10] LABS: ABSOLUTE EOSINOPHILS 0.1 thou/uL (0.0-0.7); ABSOLUTE MONOCYTES 0.6 thou/uL (0.0-1.2); ABSOLUTE NEUTROPHILS 8.4 thou/uL (1.6-8.1); BASOPHILS 0.5 %; EOSINOPHILS 0.5 %; HEMATOCRIT 31.6 % (37.0-47.0); HEMOGLOBIN 10.5 gm/dL (12.0-15.0); MCH 29.4 pg (26.0-34.0); MCHC 33.2 g/dL (28.0-37.0); MCV 88.6 fL (80.0-100.0); MONOCYTES 5.6 %; MPV 6.7 fl. (7.2-11.1); NUCLEATED RBCS 0 /100WBC; PLATELET COUNT* 396 thou/uL (150-400); POLYS 83.4 %; RBC 3.57 mil/uL (4.20-5.00); RDW-CV 15.2 % (10.5-14.5); WBC 10.1 thou/uL (4.0-11.0)
[2017-11-26 15:17] LABS: CALCIUM 8.5 mg/dL (8.5-10.1); POTASSIUM 3.9 mmol/L (3.5-5.1)
[2017-11-26 15:20] LABS: PROTIME 9.5 Seconds (9.20-11.50)
[2017-11-26 15:24] LABS: ALBUMIN 2.4 g/dL (3.4-5.0); TOTAL BILIRUBIN 0.2 mg/dL (<0.1-1.0); TOTAL PROTEIN 6.3 g/dL (6.4-8.2)
[2017-11-26] MEDS ORDERED: KEFLEX500 M1 PO (16:30)
[2017-11-26 17:47] VITALS: BP 179/88
== END 2017-11-26 17:48 ==
LOC: M.ERS 14:03
PROVIDERS: Nurse Practitioner Family
DX: S16.1XXA Strain of muscle, fascia and tendon at neck level, initial encounter (principal); S70.02XA Contusion of left hip, initial encounter; N39.0 Urinary tract infection, site not specified; S70.01XA Contusion of right hip, initial encounter; M06.9 Rheumatoid arthritis, unspecified; G62.9 Polyneuropathy, unspecified; F32.9 Major depressive disorder, single episode, unspecified; I10 Essential (primary) hypertension; F41.9 Anxiety disorder, unspecified; Z86.14 Personal history of Methicillin resistant Staphylococcus aureus infection; Z87.440 Personal history of urinary (tract) infections; Z88.1 Allergy status to other antibiotic agents; Z88.2 Allergy status to sulfonamides; Z88.8 Allergy status to other drugs, medicaments and biological substances; W18.39XA Other fall on same level, initial encounter; Y93.89 Activity, other specified; Y92.128 Other place in nursing home as the place of occurrence of the external cause; Y99.8 Other external cause status

== ENCOUNTER 2017-12-09 23:45 | Emergency (ER) | payer MEDICARE, BC, MEDICAID ==
[~2017-12-09] VITALS: Ht 157.5 cm; Wt 45.4 kg
[~2017-12-09 23:45] MED LIST changes: +BUSPIRONE HCL5 MG PO; +CARAFATE 1 GM TA1 G1 PO; +JUVEN PACKET1 EAC1 PO; +KEFLEX500 M1 PO; +PREDNISONE 2.52.5 MG PO
[2017-12-10 00:09] LABS: HEMATOCRIT 35.2 % (37.0-47.0); HEMOGLOBIN 11.4 gm/dL (12.0-15.0); MCH 28.7 pg (26.0-34.0); MCHC 32.2 g/dL (28.0-37.0); MPV 6.5 fl. (7.2-11.1); NUCLEATED RBCS 0 /100WBC; PLATELET COUNT* 434 thou/uL (150-400); RBC 3.96 mil/uL (4.20-5.00); WBC 10.6 thou/uL (4.0-11.0)
[2017-12-10 00:16] LABS: CALCIUM 8.8 mg/dL (8.5-10.1); CREATININE 1.1 mg/dL (0.6-1.3); POTASSIUM 3.7 mmol/L (3.5-5.1)
[2017-12-10 00:20] LABS: APTT 24.2 Seconds (25.0-31.3); PROTIME 9.9 Seconds (9.20-11.50)
[2017-12-10 00:21] LABS: ALBUMIN 2.3 g/dL (3.4-5.0); TOTAL BILIRUBIN 0.4 mg/dL (<0.1-1.0); TOTAL PROTEIN 6.8 g/dL (6.4-8.2)
[2017-12-10 00:41] LABS: ABSOLUTE EOSINOPHILS 0.2 thou/uL (0.0-0.7); ABSOLUTE LYMPHOCYTES 1.2 thou/uL (0.8-5.3); ABSOLUTE MONOCYTES 0.4 thou/uL (0.0-1.2); ABSOLUTE NEUTROPHILS 8.8 thou/uL (1.6-8.1); ANISOCYTOSIS Occasional; HYPOCHROMASIA 1+; PLATELET ESTIMATE INCREASED
[2017-12-10 00:42] LABS: TOXIC GRANULATION 1+
[2017-12-10 02:15] VITALS: BP 104/48
--- NOTE | 2017-12-10 11:49 | EKG ---
[place] [address] ELECTROCARDIOGRAM REPORT Name: MARCELINO TIPTON Room: [facility]#: [id number] Admission: 12/09/17 Attend Phys: Discharge: 12/10/17 Date of : 34 Report #: [id number] THIS REPORT FOR: //name// [facility] ED Test Date: 2017-12-10 Test Time: 00:00:39 Pat Name: MARCELINOHCICO TIPTON Department: Room: Gender: F Seismology Teacher: LORRIE Palomo : 1930 Requested By: Daniel Ramos Order Number: [id number] MD: Patrick Melo Measurements Intervals [place] Rate: 115 P: 70 ME: 167 QRS: -39 QRSD: 111 T: 8 QT: 328 QTc: 454 Interpretive Statements Sinus tachycardia Left ventricular hypertrophy left anterior fasicular block RBBB Baseline wander in lead(s) V3 Compared to ECG 10/20/2017 07:59:04 no change Electronically Signed On 12-10-2017 11:49:03 CDT by Patrick Melo [email or web address] <ELECTRONICALLY SIGNED> By: Patrick Melo MD, [facility] 12/10/17 1149 0000 0000 Patrick Melo MD, [facility] /EPI
== END 2017-12-10 02:17 | disposition home or self-care (01) ==
LOC: M.ERS 23:45
PROVIDERS: Family Medicine
DX: R52 Pain, unspecified (principal); G62.9 Polyneuropathy, unspecified; F32.9 Major depressive disorder, single episode, unspecified; I10 Essential (primary) hypertension; F41.9 Anxiety disorder, unspecified; Z87.440 Personal history of urinary (tract) infections; Z86.14 Personal history of Methicillin resistant Staphylococcus aureus infection; Z88.1 Allergy status to other antibiotic agents; Z88.2 Allergy status to sulfonamides; Z88.8 Allergy status to other drugs, medicaments and biological substances; W18.39XA Other fall on same level, initial encounter; Y93.89 Activity, other specified; Y92.128 Other place in nursing home as the place of occurrence of the external cause; Y99.8 Other external cause status